=== PATIENT | female | born 1985 | race Caucasian/White ===

== ENCOUNTER 2018-01-27 11:17 | Emergency (ER) | payer MEDICAID ==
[~2018-01-27] VITALS: Ht 157.5 cm; Wt 63.6 kg
[2018-01-27 11:21] VITALS: TEMP 98.4
[2018-01-27 12:25] LABS: COLLECTION METHOD CLEAN CATCH
[2018-01-27 12:36] LABS: MUCOUS Present /lpf; PH 6 (5-8); SQUAMOUS EPITHELIAL 0-2 /hpf; URINE APPEARANCE Hazy; URINE BACTERIA Rare /hpf; URINE BILIRUBIN Negative (NEGATIVE); URINE BLOOD Negative (NEGATIVE); URINE COLOR Yellow; URINE GLUCOSE Negative (NEGATIVE); URINE KETONE 1+ (NEGATIVE); URINE LEUKOCYTE ESTERASE Negative (NEGATIVE); URINE NITRATE Negative (NEGATIVE); URINE PROTEIN(semi-quant) Negative (NEGATIVE); URINE UROBILINOGEN Negative (NEGATIVE)
[2018-01-27] MEDS ORDERED: PHENERGAN25 MG RC (13:32)
[2018-01-27 13:57] VITALS: BP 97/50; PULSE 66
== END 2018-01-27 13:59 | disposition home or self-care (01) ==
LOC: COL.ER 11:17
PROVIDERS: Physician Assistant
DX: O21.9 Vomiting of pregnancy, unspecified (principal); Z87.42 Personal history of other diseases of the female genital tract; Z3A.08 8 weeks gestation of pregnancy
CPT/HCPCS: J2405; J2550; J7030